=== PATIENT | male | born 1990 | race Two or more races ===

== ENCOUNTER 2019-03-08 10:59 | Emergency (ER) | payer OTHER ==
[~2019-03-08] VITALS: Ht 167.6 cm; Wt 63.0 kg
[2019-03-08 11:10] VITALS: Ht 167.6 cm; Wt 63.0 kg
[2019-03-08 11:46] VITALS: BP 101/58
== END 2019-03-08 11:46 | disposition home or self-care (01) ==
LOC: ED 10:59
DX: M54.5 Low back pain (principal)
CPT/HCPCS: J1885

== ENCOUNTER 2019-06-24 10:22 | Emergency (ER) | payer OTHER ==
[~2019-06-24] VITALS: Ht 167.6 cm; Wt 65.8 kg
[2019-06-24 10:32] VITALS: BP 118/76; Ht 167.6 cm; Wt 65.8 kg
== END 2019-06-24 11:38 | disposition home or self-care (01) ==
LOC: ED 10:22
DX: K13.21 Leukoplakia of oral mucosa, including tongue (principal)

== ENCOUNTER 2019-07-02 08:28 | Emergency (ER) | payer OTHER ==
[~2019-07-02] VITALS: Ht 167.6 cm; Wt 64.9 kg
[2019-07-02 08:35] VITALS: BP 108/70; Ht 167.6 cm; Wt 64.9 kg
== END 2019-07-02 09:18 | disposition home or self-care (01) ==
LOC: ED 08:28
DX: H92.02 Otalgia, left ear (principal)